=== PATIENT | female | born 1960 | race Caucasian/White ===

== ENCOUNTER 2023-09-17 07:56 | Day surgery (SDC) | payer BC ==
[~2023-09-17] VITALS: Ht 165.1 cm; Wt 49.7 kg
[2023-09-17] MEDS ORDERED: VENL75ER (08:16)
[2023-09-17] MEDS ORDERED: DOCU100 (08:16)
[2023-09-17] MEDS ORDERED: OMEP20ER (08:16)
[2023-09-17] MEDS ORDERED: ESCI10 (08:23)
[2023-09-17] MEDS ORDERED: Vitamin B-12100 MCG (08:24)
[2023-09-17] MEDS ORDERED: Vitamin C100 M1 (08:24)
[2023-09-17] MEDS ORDERED: propofoL 50 ML IV ONE (08:47)
[2023-09-17] MEDS ORDERED: Lactated Ringer's 1,000 ML IV ONE ×2 (08:47→08:56)
--- NOTE | 2023-09-17 10:11 | NUR ---
09/17/23 1011 Aurora Cook UNABLE TO PRINT VS FROM MONITOR. PT WAS STABLE THROUGHOUT PROCEDURE.
[2023-09-17] MEDS ORDERED: Ondansetron HCl 2 MG / ML 2ML Vial ONE (10:13)
[2023-09-17 10:34] VITALS: BP 117/67
== END 2023-09-17 10:30 | disposition home or self-care (01) ==
LOC: ORSCSDS 07:56
PROVIDERS: Internal Medicine Gastroenterology
PROC: 0DJD8ZZ Inspection of Lower Intestinal Tract, Via Natural or Artificial Opening Endoscopic (ICD-10-PCS; principal; 2023-09-17 09:30)
DX: Z12.11 Encounter for screening for malignant neoplasm of colon (principal); Z87.891 Personal history of nicotine dependence; F41.9 Anxiety disorder, unspecified; K21.9 Gastro-esophageal reflux disease without esophagitis; Z79.899 Other long term (current) drug therapy
CPT/HCPCS: J2405; J2704; J7120